=== PATIENT | female | born 1970 | race Caucasian/White ===

== ENCOUNTER 2018-01-13 17:44 | Emergency (ER) | payer OTHER ==
[~2018-01-13] VITALS: Ht 160 cm; Wt 109.5 kg
[2018-01-13 22:19] LABS: HEMATOCRIT 36.4 % (36.0-46.0); HEMOGLOBIN 11.5 G/DL (11.9-15.5); MCH 25.9 PG (29.0-34.0); MCHC 31.6 G/DL (30.0-36.0); PLATELET COUNT 309 K/uL (156-360); RBC DIS.WIDTH-CV 14.8 % (11.8-14.6); RBC DIS.WIDTH-SD 43.9 % (39-53); RED BLOOD COUNT 4.44 M/uL (3.80-5.20); WHITE BLOOD COUNT 14.5 K/uL (4.1-10.2)
[2018-01-13 22:27] LABS: APPEARANCE SL.HAZY ((CLEAR)); BILIRUBIN NEGATIVE; BLOOD NEGATIVE; COLOR YELLOW ((YELLOW)); GLUCOSE (STRIP) NEGATIVE; KETONES 20; LEUKOCYTES NEGATIVE; NITRITE NEGATIVE; PROTEIN (STRIP) NEGATIVE; UROBILINOGEN 0.2 MG/DL (0.2-1.0)
[2018-01-13 22:28] LABS: ALBUMIN 4.1 g/dL (3.2-4.8); CHLORIDE 102 mEq/L (99-109); POTASSIUM 3.8 mEq/L (3.7-5.4); SODIUM 136 mEq/L (136-147)
[2018-01-13 22:31] LABS: GLUCOSE 121 mg/dL (70-99); TOTAL PROTEIN 7.1 g/dL (6.4-8.3)
[2018-01-13 22:33] LABS: TOTAL BILIRUBIN 1.1 mg/dL (0.0-1.0)
[2018-01-13 22:34] LABS: ALKALINE PHOSPHATASE 90 IU/L (3-129); CREATININE 0.8 mg/dL (0.6-1.3); GFR ESTIMATE (CALCULATED) > 59 mL/min/
[2018-01-13 22:35] LABS: UREA NITROGEN (BUN) 11 mg/dL (9-23)
[2018-01-13 22:36] LABS: AST (GOT) 22 IU/L (2-34)
[2018-01-13 22:37] LABS: ALT (GPT) 20 IU/L (3-49)
[2018-01-13 22:38] LABS: LIPASE 45 U/L (1.0-51.0)
[2018-01-13 22:43] LABS: QUANTITATIVE HCG < 4.0 MIU/ML
[2018-01-13 22:48] LABS: BACTERIA RARE /HPF; EPITHELIAL CELLS 2+ /HPF; MUCUS 1+ /LPF; RED BLOOD CELLS 0-5 /HPF (0-5); UCUL ADDED? NO; WHITE BLOOD CELLS 0-5 /HPF (0-5)
[2018-01-14 00:56] VITALS: BP 107/65
== END 2018-01-14 00:58 | disposition home or self-care (01) ==
LOC: TRA 17:44 → EME 17:44 → TRA 01-14 00:58
PROVIDERS: Physician Assistant
DX: S60.212A Contusion of left wrist, initial encounter (principal); S30.1XXA Contusion of abdominal wall, initial encounter; V43.52XA Car driver injured in collision with other type car in traffic accident, initial encounter; Y92.410 Unspecified street and highway as the place of occurrence of the external cause; Z79.01 Long term (current) use of anticoagulants
CPT/HCPCS: 73110; 74177; 80053; 81003; 83690; 84702; 85027; 86850; 86900; 86901; 99281; 99284; J1885